=== PATIENT | male | born 1965 | race African-American/Black ===

== ENCOUNTER 2017-10-15 12:01 | Emergency (ER) | payer SELFPAY ==
[2017-10-15] MEDS ORDERED: Ketorolac Tromethamine 60 MG/2 ML VIAL ONE (12:22)
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
== END 2017-10-15 13:15 | disposition home or self-care (01) ==
LOC: NAV ERS 12:01
DX: S06.9X1A Unspecified intracranial injury with loss of consciousness of 30 minutes or less, initial encounter (principal); S20.212A Contusion of left front wall of thorax, initial encounter; S00.03XA Contusion of scalp, initial encounter; Y04.0XXA Assault by unarmed brawl or fight, initial encounter
CPT/HCPCS: 70450; 72125; 96372; J1885

== ENCOUNTER 2020-06-24 15:39 | Emergency (ER) | payer OTHER, SELFPAY ==
[2020-06-24] MEDS ORDERED: Acetaminophen 500 MG TAB ONE (15:58)
--- NOTE | 2020-06-24 16:30 | RAD ---
EXAM: CHEST ONE VIEW HISTORY: Cough COMPARISON: 06/29/2015 FINDINGS: The cardiac silhouette and pulmonary vasculature are within normal limits. The lungs are clear. The o sseous structures are intact. IMPRESSION: No acute cardiopulmonary process.
[2020-06-25 18:54] LABS: SARS-CoV-2 MS2 Positive; SARS-CoV-2 N Gene Negative; SARS-CoV-2 S Gene Negative; SARS-CoV-2 by NAA Not Detected (NotDetected); SARS-CoV-2 orf1ab Negative
== END 2020-06-24 16:40 | disposition home or self-care (01) ==
LOC: NAV ERS 15:39
DX: R50.9 Fever, unspecified (principal); R05 Cough; R09.81 Nasal congestion; Z20.828 Contact with and (suspected) exposure to other viral communicable diseases
CPT/HCPCS: 71045; 87635; U0003

== ENCOUNTER 2021-08-12 16:08 | Emergency (ER) | payer OTHER, SELFPAY ==
[2021-08-12] MEDS ORDERED: Acetaminophen 500 MG TAB ONE (16:19)
== END 2021-08-12 16:35 | disposition home or self-care (01) ==
LOC: NAV ERS 16:08
DX: L03.113 Cellulitis of right upper limb (principal)
CPT/HCPCS: 99283

== ENCOUNTER 2021-11-29 07:04 | Emergency (ER) | payer BC, SELFPAY ==
[2021-11-29] MEDS ORDERED: Ondansetron ODT 4 MG TAB ONE (07:42)
[2021-11-29 16:53] LABS: SARS-CoV-2 PCR by NAA Not Detected (NotDetected)
== END 2021-11-29 08:10 | disposition home or self-care (01) ==
LOC: NAV ERS 07:04
DX: B34.9 Viral infection, unspecified (principal); R11.2 Nausea with vomiting, unspecified; Z20.822 Contact with and (suspected) exposure to COVID-19
CPT/HCPCS: 99283; Q0162; U0003; U0005

== ENCOUNTER 2022-01-28 10:52 | Emergency (ER) | payer BC | END 2022-01-28 13:13 | disposition home or self-care (01) | LOC: NAV ERS 10:52 | DX: E86.0 Dehydration (principal); R42 Dizziness and giddiness; R29.700 NIHSS score 0; F17.210 Nicotine dependence, cigarettes, uncomplicated | CPT/HCPCS: 36416; 93005 ==

== ENCOUNTER 2023-03-09 20:23 | Emergency (ER) | payer BC, SELFPAY ==
[2023-03-09] MEDS ORDERED: Penicillin V Potassium 250 MG TAB ONE (21:14)
== END 2023-03-09 21:19 | disposition home or self-care (01) ==
LOC: NAV ERS 20:23
DX: J02.9 Acute pharyngitis, unspecified (principal); F17.210 Nicotine dependence, cigarettes, uncomplicated
CPT/HCPCS: 87430; 99283

== ENCOUNTER 2023-10-03 05:46 | Emergency (ER) | payer OTHER ==
[2023-10-03] MEDS ORDERED: HYDROcodone/Acetaminophen 5/325 mg Tablet ONE (06:38)
[2023-10-03] MEDS ORDERED: Ibuprofen 800 MG TAB ONE (06:40)
== END 2023-10-03 06:47 | disposition home or self-care (01) ==
LOC: NAV ERS 05:46
DX: S62.524A Nondisplaced fracture of distal phalanx of right thumb, initial encounter for closed fracture (principal); F17.210 Nicotine dependence, cigarettes, uncomplicated; W23.1XXA Caught, crushed, jammed, or pinched between stationary objects, initial encounter
CPT/HCPCS: 29125